=== PATIENT | male | born 1955 | race Caucasian/White ===

== ENCOUNTER → 2022-09-21 10:23 | Outpatient (CLI) | payer MEDICARE, SELFPAY ==
--- NOTE | ~2022-09-21 | MR_ITS ---
MRI of the right knee Clinical history: Pain Technique: Coronal proton density and proton density-weighted images, sagittal proton-density and T2 fat-sat images, and axial proton-density fat-saturated images were acquired. Findings: Anterior and posterior cruciate ligaments are intact. Medial collateral ligament and the la teral collateral ligament complex are intact. Popliteus tendon is intact. Horizontal tear of the posterior horn of the medial meniscus is present, probably extending into the body segment. No lateral meniscal tear identified. There is mild chondromalacia patella along the lateral facet. Articular cartilage is well preserved t hroughout the remainder of the knee. There is focal marrow edema at the posteromedial tibial plateau, which could reflect reactive marrow edema versus focal bone contusion. Remaining bone marrow signals are unremarkable. Extensor mechanism intact. Small joint effusion present. Small Landin's cyst. Impression: Horizontal tear of the posterior horn of the medial meniscus, likely extending to the body segment. Focal bone contusion versus reactive marrow edema at the posterior medial tibial plateau. Mild chondromalacia patella. Small joint effusion and small Landin's cyst. Reviewed, dictated and finalized at [facility]. [employer] Impression: Horizontal tear of the posterior horn of the medial meniscus, likely extending to the body segment. Focal bone contusion versus reactive marrow edema at the posterior medial tibia l plateau. Mild chondromalacia patella. Small joint effusion and small Landin's cyst.
== END ==
PROVIDERS: PCP Emergency Medicine; Visit Provider Emergency Medicine
DX: S83.241A Other tear of medial meniscus, current injury, right knee, initial encounter (principal); X58.XXXA Exposure to other specified factors, initial encounter
CPT/HCPCS: 73721

== ENCOUNTER 2024-08-12 10:23 | Outpatient (CLI) | payer MEDICARE, SELFPAY ==
--- NOTE | ~2024-08-12 | CT_ITS ---
EXAMINATION:CT lung screening DATE: 08/12/2024 10:35 INDICATION: Personal history of nicotine dependence. Current smoker with 35 pack year history. TECHNIQUE: Computed tomography (CT) of the chest was performed without intravenous contrast. Automate d exposure control and iterative reconstruction technique were employed. The dose-length product (DLP ) was 174.29 mGy-cm. COMPARISON: None. FINDINGS: The lungs demonstrate mild atelectasis in the right. There is a 3 mm nodule in right middle lobe. No pleural effusion. The heart size is normal. There are coronary artery calcifications. No pe ricardial effusion. There is bilateral gynecomastia. Calcifications in the pancreas are consistent wi th chronic pancreatitis. There are cysts in the liver measuring up to 9 mm. There is mild thoracic sp ondylosis. There is mild chronic height loss of multiple vertebral bodies. IMPRESSION: 1. Lung-RADS category 2: Benign appearance or behavior. Continue annual screening with noncontrast lo w-dose chest CT in 12 months. Reviewed, dictated and finalized at location [facility]. [employer] IMPRESSION: 1. Lung-RADS category 2: Benign appearance or behavior. Continue annual screeni ng with noncontrast low-dose chest CT in 12 months.
== END 2024-08-12 10:24 | disposition home or self-care (01) ==
LOC: MICIMG 10:24
PROVIDERS: PCP Emergency Medicine; Visit Provider Emergency Medicine
DX: Z12.2 Encounter for screening for malignant neoplasm of respiratory organs (principal); Z87.891 Personal history of nicotine dependence
CPT/HCPCS: 71271

== ENCOUNTER 2025-03-25 02:54 | Day surgery (SDC) | payer MEDICARE, SELFPAY ==
[2025-03-09 09:11] VITALS: BMI 28.9
--- OUTSIDE RECORDS SUMMARY | 2025-03-25 02:58 | XMS_ITS | Clinical Summary ---
Author Organization [facility] Address formerly [facility] [place] [address] Care Team Providers Care Able Seaman Name Role Phone Unavailable Primary Care Provider Unavailabl e Social History Tobacco Use Types Packs/Day Years Used Date Smoking Tobacco: Never Assessed Sex and Gender Information Value Date Recorded Sex Assigned at Not on file Legal Sex Male 8:24 PM CDT Gender Identity Not on file Sexual Orientation Not on file Plan of Treatment Health Maintenance Due Date Last Done Comments Colorectal Cancer Screening Colonoscopy (10 Years) 1955 Hepatitis C 01/18/1972 DTaP, Tdap and Td Vaccines ( 1 - Tdap) 1973 Pneumococcal Vaccine: 50+ Ye ars (1 of 1 - PCV) 01/18/2004 Zoster Vaccines (1 of 2) 01/18/2004 COVID-19 Vaccine ( - 2023-2 5 season) 2024 RSV Immunization or 60+ Years (1 - 1-dose 75+ series) 2029 Meningococcal B Vaccine Aged Out No l onger eligible based on patient's age to complete this topic Meningococcal Vaccine Aged Out No ana lenny eligible based on patient's age to complete this topic RSV Immunizations Under 20 Months Aged Out No longer eligible based on patient's age to complete this topic
[2025-03-25 08:08] VITALS: BP 139/85; PULSE 80; RESP 18; TEMP 36.2; O2SAT 97; BMI 28.5
[2025-03-25] MEDS: LACTATED RINGERS 1,000 ML 150 ML IV CONT (08:18)
--- NOTE | 2025-03-25 08:18 | SUR.PREOP ---
Patient reports eating a hotdog with mustard yesterday morning at 1030. Dr. Brown notified and aware. Okay to proceed.
--- NOTE | 2025-03-25 09:03 | P.PNAN_ITS ---
Anes - Initial Pre Proc Eval Procedure: Operation Date: 03/25/25 09:30 Proposed Procedures p Colonoscopy - David Brown MD Date/Time: 03/25/25 09:03 Surgeon: David Brown MD Pre Op Diagnosis: other fecal abnormalites Patient Data Age: 70 Gender: M Height: 1.88 m Weight: 100.7 kg Last Vital Signs Temp 97.2 F L 03/25/25 08:08 Pulse 80 03/25/25 08:08 Resp 18 03/25/25 08:08 BP 139/85 03/25/25 08:08 Pulse Ox 97 03/25/25 08:08 O2 Del Method Room Air 03/25/25 08:08 Allergies Allergy/AdvReac Type Severity Reaction Status Date / Time No Known Allergies Allergy Verified 03/25/25 08:07 Home Medications ?Medication ?Instructions ?Recorded ?Confirmed ?Type meclizine 25 mg tablet 25 mg PO QID PRN dizziness 03/09/25 03/25/25 History Patient hx anesthesia problems: none Family hx anesthesia problems: none Results Review: All pre-operative results and documents have been reviewed as part of the pre- operative evaluation. [facility] Social History Social History Smoking packs per day: 0.5 Smoking cigarettes per day: 10.0 Years smoked: 40 Smoking pack-years: 20.00 Smoking status: Current every day smoker Tobacco type: cigarettes Substance use type: does not use Living arrangements: with family Anes - Eval Final PreProcedure Day of Procedure 03/25/25 09:03 Patient weight: overweight Lungs: normal air movement Airway: Mallampati scale class II Neurological: alert and oriented Last oral intake: >/= 8 hours ASA classification: II Emergent: no Anesthetic plan: proceed Anesthesia type and monitoring: general GIVS and standard monitoring Results Review: All pre-operative results and documents have been reviewed as part of the pre- operative evaluation. Smoker 10-15 cigs/day. Active golfer, no cp or sob. Informed Consent: The patient's anesthetic plan and its attendant risks and benefits were discussed with the patient/family/POA. Questions were solicited and answers provided to the satisfaction of the patient/family/POA.
--- NOTE | 2025-03-25 09:17 | PM.IMHP ---
H&P: HPI History of Present Illness Date/Time: 03/25/25 09:17 Chief Complaint: Positive Cologuard test Narrative: This is the patient's first colonoscopy. There are no GI symptoms and there is no family history of colorectal cancer. he was recently found to have a Cologuard positive test. Review of Systems Review of Systems: All systems reviewed & are unremarkable except as noted in HPI and below PMFSH Social History Social History Smoking packs per day: 0.5 Smoking cigarettes per day: 10.0 Years smoked: 40 Smoking pack-years: 20.00 Smoking status: Current every day smoker Tobacco type: cigarettes Substance use type: does not use Living arrangements: with family Meds Home Medications and Allergies Home Medications ?Medication ?Instructions ?Recorded ?Confirmed ?Type meclizine 25 mg tablet 25 mg PO QID PRN dizziness 03/09/25 03/25/25 History Allergies Allergy/AdvReac Type Severity Reaction Status Date / Time No Known Allergies Allergy Verified 03/25/25 08:07 Vital Signs Vital Signs - 24 hr 03/25/25 08:08 Temperature 97.2 F L Pulse Rate 80 Respiratory Rate 18 Blood Pressure 139/85 Pulse Oximetry 97 Oxygen Delivery Room Air Exam Const: General: cooperative and healthy appearing Resp: Effort & Inspection: normal respiratory effort and able to speak in complete sentences Auscultation: clear to auscultation bilaterally Cardio: Rate: regular rate Rhythm: regular rhythm GI: Inspection: normal to inspection GI Palp: No No hepatosplenomegaly present Auscultation: normal bowel sounds Rectal Exam: deferred Skin: General skin exam: normal color Psych: Appearance: grossly normal Mental Status: mental status grossly normal Assessment and Plan Assessment and plan (1) Positive colorectal cancer screening using Cologuard test: Code(s): R19.5 - Other fecal abnormalities Status: Acute Assessment and Plan: The patient is deemed a good candidate for the procedure. Consent signed. Will proceed.
--- NOTE | 2025-03-25 10:03 | S_PTH ---
PATIENT: Garry Hermosillo LOC: [facility] U#:[id number] AGE/SX: 70/M ROOM: RE03/25/[address]: David Brown MD : 1955 BED: DIS: 03/25/2025 SPEC #: [id number] RECD: 03/25/25 12:53 STATUS: ROBERTH REQ #: [id number] MARIE: 03/25/25 10:[address]: David Brown DEPT: [facility] RECD BY: Deyanira Hoyos ENTERED: 03/25/25 12:55 SP TYPE: Surgical OTHR DR: Bridger Molina MD Tissues: A - Colon Polypectomy B - Colon Polypectomy C - Colon Polypectomy D - Colon Polypectomy E - Colon Polypectomy Procedures: Hematoxylin and Eosin Stain Gross and Microscopic Level 4
[2025-03-25 10:07] VITALS: BP 141/97; PULSE 65; RESP 17; O2SAT 99
[2025-03-25 10:17] VITALS: BP 147/86; PULSE 61; RESP 17; O2SAT 99
[2025-03-25 10:27] VITALS: BP 145/91; PULSE 65; RESP 21; O2SAT 99
== END 2025-03-25 10:40 | disposition home or self-care (01) ==
PROVIDERS: PCP Emergency Medicine; Referring Provider Emergency Medicine; Visit Provider Internal Medicine Gastroenterology
PROC: 0DJD8ZZ Inspection of Lower Intestinal Tract, Via Natural or Artificial Opening Endoscopic (ICD-10-PCS; CPT 45378; principal; 2025-03-25 09:30)
DX: R19.5 Other fecal abnormalities (principal); D12.5 Benign neoplasm of sigmoid colon; K63.5 Polyp of colon; K57.30 Diverticulosis of large intestine without perforation or abscess without bleeding; F17.210 Nicotine dependence, cigarettes, uncomplicated
CPT/HCPCS: 45385; 88305; J2003; J2704; J7120